=== PATIENT | female | born 1995 | race Caucasian/White ===

== ENCOUNTER 2022-08-23 16:21 | Emergency (ER) | payer SELFPAY ==
[~2022-08-23] VITALS: Ht 170.2 cm; Wt 120.2 kg
== END 2022-08-23 18:03 | disposition home or self-care (01) ==
LOC: ER 16:21
DX: S83.411A Sprain of medial collateral ligament of right knee, initial encounter (principal); V00.321A Fall from snow-skis, initial encounter; Y93.23 Activity, snow (alpine) (downhill) skiing, snowboarding, sledding, tobogganing and snow tubing
CPT/HCPCS: 73562-RT